=== PATIENT | female | born 1955 | race Caucasian/White ===

== ENCOUNTER 2022-04-15 11:57 | Day surgery (SDC) | payer OTHER, MEDICARE ==
[2022-04-15] MEDS ORDERED: Ringers Lactate 1,000 ML IV ONE (12:13)
[2022-04-15] MEDS ORDERED: CEFAZOLIN SODIUM 2 GM/VIAL ONE (12:13)
[2022-04-15] MEDS ORDERED: HYDROMORPHONE HCL 0.5 MG/0.5 ML INJ IV ONE (12:15)
[2022-04-15 12:50] LABS: Absolute Lymphocytes (CBC) 0.6 K/uL (0.7-4.9); Hematocrit 40.6 % (36.0-45.0); Lymphocytes % 5.4 % (15.3-44.8); MCV 92.4 fL (80-100); MPV 9.6 fL (7.6-11.3)
[2022-04-15 13:07] LABS: Potassium 4.1 mmol/L (3.5-5.1)
--- NOTE | 2022-04-15 13:16 | RAD REPORT ---
EXAM DESCRIPTION: RAD - Chest Single View - 04/15/2022 12:46 pm CLINICAL HISTORY: pre procedure screening COMPARISON: None TECHNIQUE: AP portable chest image was obtained 04/15/2022 12:46 pm . FINDINGS: Lungs are clear. Heart and vasculature are normal. No measurable pleural effusion and no p neumothorax. No acute bony abnormality seen. No acute aortic findings suspected. IMPRESSION: No acute cardiopulmonary process.
[2022-04-15 13:21] VITALS: O2SAT 100
[2022-04-15] MEDS ORDERED: FENTANYL CITR 100 MCG/2 ML ONE ×2 (13:23→13:37)
[2022-04-15] MEDS ORDERED: propofoL 200 MG/20 ML VIAL IV ONE (13:36)
[2022-04-15] MEDS ORDERED: LIDOCAINE 1% MPF 5 ML VIAL ONE (13:36)
[2022-04-15 14:30] LABS: Blood Morphology Comment NOT SEEN (NOT SEEN); Platelet Estimate ADEQ
[2022-04-15] MEDS ORDERED: dexAMETHasone 10 MG/ML VIAL ONE (14:34)
[2022-04-15] MEDS ORDERED: KETOROLAC 30 MG/ML INJ ONE (14:34)
[2022-04-15] MEDS ORDERED: ONDANSETRON 4 MG/2 ML VIAL ONE (14:38)
[2022-04-15] MEDS ORDERED: TRAMADOL 37.5mg/APAP 325mg PER TAB PO ONE (14:59)
--- NOTE | 2022-04-15 15:13 | RAD REPORT ---
EXAM DESCRIPTION: RAD - Urethrocystogrphy Retrograde - 04/15/2022 2:51 pm FINDINGS: There were 8 KUB images obtained during fluoroscopic assisted placement of a left ureteral stent. No suspicious or unexpected findings. Fluoro time was 18 seconds.
[2022-04-15 16:06] VITALS: BP 139/58
[2022-04-15 16:36] VITALS: TEMP 98.7
--- NOTE | 2022-04-16 00:42 | OP ---
Surgeon: MARY ALICE LANTIGUA Preoperative Diagnoses: 1.Left ureterolithiasis. 2.Left hydronephrosis. 3.Intractable pain. 4.Anorexia/nausea and vomiting. Postoperative Diagnoses: 1.Left ureterolithiasis. 2.Left hydronephrosis. 3.Intractable pain. 4.Anorexia/nausea and vomiting. Procedures: 1.Cystoscopy. 2.Left retrograde pyelography. 3.Left ureteral stent placement. Indication For Procedure: Ms. Carney presented to the [facility] with intractable pain, nausea, a nd vomiting/retching associated with the presence of an obstructing, around 3 mm ureteral calculus. She failed management with outpatient antibiotics as well as tramadol and antiemetics and presented f or definitive management with left ureteral stent placement. Procedure In Detail: The patient was consented in the preoperative holding area before being transfe rred to operative suite, where general anesthesia was induced. She was given Ancef 2 g IV antimicrob ial prophylaxis and Pneumoboots were provided for DVT prophylaxis. She was placed in the lithotomy p osition, padded and secured to the table appropriately and her genitalia was prepped with Hibiclens b efore being draped in standard fashion. The case was begun using a 22-Nauruan rigid cystoscope to tra verse the urethra and into the bladder with ease. The bladder was decompressed of urine and surveyed in its entirety. There were no mucosal lesions, foreign bodies, or stones noted and the ureteral or ifices were orthotopic in location. I thus cannulated the left ureteral orifice using the tip of a 5 -Nauruan ureteral access catheter and performed a retrograde pyelogram. Left Retrograde Pyelography: Using a 70:30 mixture of Omnipaque and saline, the contrast did propaga te up a nondilated distal ureter before reaching a point of delayed entry in the mid proximal ureter before entering the renal pelvis, which showed signs of pelviectasis with minimal caliectasis. I clair s passed a 5-Nauruan ureteral access catheter up the distal ureter into the mid and proximal ureter wh ere there was some hindrance observed at that point, though no radiopaque calculus was visible. With gentle navigation, I was able to navigate the [employer] guidewire beyond the point of obstruction and eventually into the upper pole as identified fluoroscopically. A coil was observed there. Over the wire, I then passed a 6-Nauruan x 26 cm double-J ureteral stent with a coil observed fluoroscopically in the renal pelvis and one cystoscopically formed in the bladder. The bladder was then decompressed of fluid and urine, the patient was taken out of the lithotomy position, she was awakened from gener al anesthesia, transferred to a stretcher, and then transferred to the recovery room in [facility]. Complications: None. Discharge Disposition: Given the very small size of the stone, it is indeed possible that with simpl e removal of the stent she may pass the stone, but given the severity of her symptomatology associate d with an attempt at spontaneous passage, likely she would benefit from definitive management via ure teroscopy with laser lithotripsy to be intervally scheduled. MIGUEL/TIMOTHY Voice ID: [id number] Report ID: [id number]
--- NOTE | 2022-04-18 15:07 | EKG ---
Test Date: 2022-04-15 Test Time: 12:29:24 Orthotic Assistant: MARTA MEASUREMENT RESULTS: Intervals: Rate: 65 DE: 154 QRSD: 74 QT: 414 QTc: 430 [place]: P: 70 DE: 154 QRS: 49 T: 26 INTERPRETIVE STATEMENTS: Normal sinus rhythm Cannot rule out Anterior infarct, age undetermined Abnormal ECG No previous ECG available for comparison Electronically Signed On 04-18-22 14:58:59 [employer] SELLING by Benito Guerrero
== END 2022-04-15 16:35 | disposition home or self-care (01) ==
LOC: OR 11:57
PROVIDERS: ATTEND Urology
PROC: 0T9780Z Drainage of Left Ureter with Drainage Device, Via Natural or Artificial Opening Endoscopic (ICD-10-PCS; principal; 2022-04-15 13:30)
DX: N13.2 Hydronephrosis with renal and ureteral calculous obstruction (principal); R11.2 Nausea with vomiting, unspecified; R63.0 Anorexia; Z68.26 Body mass index [BMI] 26.0-26.9, adult; G89.29 Other chronic pain
CPT/HCPCS: 93005; 87088; 85025; 87086; 80048; 36415; 71045; 74450; 51610; 52332; J2704; J2001; J3010 ×2; J1100; J7120; J2405; J1170

== ENCOUNTER 2022-05-10 10:06 | Day surgery (SDC) | payer OTHER, MEDICARE ==
[~2022-05-10 10:06] MED LIST: Gentamicin Inj 160 MG in NA CHLORIDE 0.9% 100 ML IV ONE
[2022-05-10] MEDS ORDERED: AMPICILLIN SODIUM 2 GM/VIAL VIAL ONE (10:33)
[2022-05-10] MEDS ORDERED: Ringers Lactate 1,000 ML IV ONE (10:33)
[2022-05-10] MEDS ORDERED: LIDOCAINE 1% MPF 5 ML VIAL ONE (12:48)
[2022-05-10] MEDS ORDERED: FENTANYL CITR 100 MCG/2 ML ONE (12:48)
[2022-05-10] MEDS ORDERED: propofoL 200 MG/20 ML VIAL IV ONE (12:48)
[2022-05-10] MEDS ORDERED: MIDAZOLAM HCL 2 MG/2 ML INJ ONE (12:48)
[2022-05-10] MEDS ORDERED: ONDANSETRON 4 MG/2 ML VIAL ONE (12:49)
[2022-05-10] MEDS ORDERED: GLYCOPYRROLATE 0.2 MG/ML SYR ONE (13:24)
[2022-05-10 14:20] VITALS: O2SAT 100
[2022-05-10] MEDS ORDERED: PHENAZOPYRIDINE 100MG TAB PO ONE ×2 (14:39→15:22)
[2022-05-10] MEDS ORDERED: HYDROCODONE/APAP 5/325 MG TAB PO PRN (14:39)
--- NOTE | 2022-05-10 14:52 | RAD REPORT ---
EXAM DESCRIPTION: RAD - Urethrocystogrphy Retrograde - 05/10/2022 2:07 pm CLINICAL HISTORY: LEFT STENT PLACEMENT COMPARISON: Urethrocystogrphy Retrograde dated 04/15/2022 FINDINGS/IMPRESSION: Four intraoperative fluoroscopic images were submitted showing cannulation of t he left ureter and placement of a left ureteral stent. Fluoro time: 0.1 minutes Cumulative dose: 1.07 mGy
[2022-05-10 16:05] VITALS: BP 144/72; TEMP 96.7
--- NOTE | 2022-05-11 07:20 | OP ---
Surgeon: MARY ALICE LANTIGUA Preoperative Diagnosis: Left proximal ureterolithiasis, 2.5 mm. Postoperative Diagnosis: Left proximal ureterolithiasis, 2.5 mm. Procedures: 1.Cystoscopy with left retrograde pyelography. 2.Left ureteroscopy with stone basketing. 3.Left ureteral stent exchange. Indication For Procedure: Ms. Carney presented to the Urology Clinic with anorexia and intractable na usea or vomiting as well as flank pain associated with a proximal ureteral 2.5 mm calculus. She unde rwent stent placement to quell her symptoms and presents today for definitive management of the stone . Of note, preoperative urine culture revealed enterococcus sensitive to the penicillins and she was started on Augmentin in preparation for surgery today. Procedure In Detail: The patient was consented in the preoperative holding area before being transfe rred to operative suite where general anesthesia was induced. She was given ampicillin 2 g and genta micin 2-3 mg/kg IV antimicrobial prophylaxis and Pneumoboots were provided for DVT prophylaxis. She was placed in the lithotomy position, padded and secured to the table appropriately. Her genitalia w ere prepped with Hibiclens and she was draped in standard fashion. The case was begun using the 22-F rench rigid cystoscope to traverse the urethra and into the bladder with ease. The bladder was decom pressed off fluid and urine and the stent was noted to emanate from the left ureteral orifice. The c oil of the stent was grasped using an alligator grasper and delivered to the meatus. The proximal en d of the stent was left within the proximal ureter. A Sensor wire was then passed via the ureteral s tent and did coil in the putative collecting system. Leaving the wire in place and removing the sten t, a semirigid ureteroscopy using pressurized normal saline was performed alongside the wire into the distal and the mid and into the proximal ureter where the stone was encountered. Because the ureter was sufficiently dilated, I was able to employ a 1.9-Iranian 0 tipped Nitinol basket to grasp the sto ne and deliver it intact from the ureter and out of the meatus. The stone was sent for chemical anal ysis, and I then back-loaded the cystoscope over the indwelling safety wire. I utilized a 5-Iranian u reteral access catheter placed alongside the safety wire to perform a retrograde pyelogram to ensure absence of extravasation and the intact nature of the ureter following the stone basketing. Contrast did propagate up the distal into the mid and proximal ureter before filling the renal pelvis without extravasation. The coil of the wire was present within the pelvis and the upper pole calyces. As a result, I removed the 5-Iranian ureteral access catheter and passed a 6-Iranian x 24 cm double-J urete ral stent over the safety wire, coiling it within the renal pelvis. This was observed fluoroscopical ly, and an additional coil was formed cystoscopically within the bladder. The stent was left on its tether, which was secured to her introitus using Mastisol and Steri-Strips. Her bladder was decompre ssed and the patient was taken out of the lithotomy position before being transferred to a stretcher and then awakened from general anesthesia. She was then transferred to the recovery room in good con dition. Complications: None. Discharge Disposition: She may follow up on Monday for tethered ureteral stent extraction. She is a lready on Augmentin prescribed preoperatively for enterococcus UTI. Subsequent followup will be requ ired only if she is a recurrent stone former. If this is her first stone forming event, she should s imply be encouraged to increase the volume of fluid intake such that she produces at least 2 L of uri ne daily, or voids at least every 3 hours with a full bladder during the waking hours of the day. Ad ding cranberry juice or lemon to her water/lemonade is also helpful. MIGUEL/TIMOTHY Voice ID: [id number] Report ID: [id number]
== END 2022-05-10 16:05 | disposition home or self-care (01) ==
LOC: OR 10:06
PROVIDERS: ATTEND Urology
PROC: 0T778DZ Dilation of Left Ureter with Intraluminal Device, Via Natural or Artificial Opening Endoscopic (ICD-10-PCS; 2022-05-10)
PROC: 0TC78ZZ Extirpation of Matter from Left Ureter, Via Natural or Artificial Opening Endoscopic (ICD-10-PCS; principal; 2022-05-10 10:45)
DX: N20.1 Calculus of ureter (principal); N13.30 Unspecified hydronephrosis; R10.9 Unspecified abdominal pain; R63.0 Anorexia
CPT/HCPCS: 87088; 87086; 88300; 87077; 87186; 82360; 74450; 51610; 52352; 52332; J2704; J2001; J1580; J2250; J3010; J7120; J2405; J0290